=== PATIENT | male | born 1970 | race Caucasian/White ===

== ENCOUNTER 2018-09-19 16:18 | Emergency (ER) | payer SELFPAY ==
[2018-09-19 16:39] VITALS: BP 170/84; PULSE 90; RESP 18; TEMP 97.9; O2SAT 99
--- NOTE | 2018-09-19 17:30 | C.PDOC ---
History Of Present Illness 48 y/o male presents to the ED complaining of right upper arm and shoulder pain s/p trauma yesterday. Patient states a large metal plate hit him at the right upper arm/shoulder while at work yesterday. He works in an industrial kitchen. Denies any extremity weakness, numbness, head injury, LOC, chest pain, or SOB. Patient reports taking Tylenol at home with minimal relief. Time Seen by Provider: 09/19/18 16:43 Chief Complaint (Nursing): Upper Extremity Problem/Injury History Per: Patient History/Exam Limitations: no limitations Onset/Duration Of Symptoms: Days (x 2) Current Symptoms Are (Timing): Still Present Past Medical History Reviewed: Historical Data, Nursing Documentation, Vital Signs Vital Signs: Last Vital Signs Temp 97.9 F 09/19/18 16:37 Pulse 90 09/19/18 16:37 Resp 18 09/19/18 16:37 BP 170/84 H 09/19/18 16:37 Pulse Ox 99 09/19/18 16:37 - Medical History PMH: HTN, Hypercholesterolemia Surgical History: Appendectomy Family History: States: Unknown Family Hx - Social History Hx Tobacco Use: Yes Hx Alcohol Use: Yes Hx Substance Use: No - Immunization History Hx Tetanus Toxoid Vaccination: Yes Hx Influenza Vaccination: No Hx Pneumococcal Vaccination: No Review Of Systems Constitutional: Negative for: Other (Head injury) Eyes: Negative for: Vision Change Cardiovascular: Negative for: Chest Pain Respiratory: Negative for: Shortness of Breath Musculoskeletal: Positive for: Shoulder Pain (right), Arm Pain (Right upper). Negative for: Neck Pain Neurological: Negative for: Weakness, Numbness, Incoordination, Headache Physical Exam - Physical Exam Appears: Non-toxic, In Acute Distress (appears to be in mild pain) Skin: Warm, Dry Head: Atraumatic, Normacephalic Eye(s): bilateral: Normal Inspection Neck: Normal ROM Chest: Symmetrical, No Deformity, No Tenderness Cardiovascular: Rhythm Regular, No Murmur Respiratory: Normal Breath Sounds, No Accessory Muscle Use Extremity: Normal ROM (with FROM of the right wrist, elbow, and shoulder), Tenderness (to the right distal arm at lateral aspect, with mild TTP of the right lateral shoulder; No elbow tenderness), Capillary Refill (< 2 sec), No Deformity, Other (ecchymosis, approximately 5x5 cm, to the right upper arm) Pulses: Left Radial: Normal, Right Radial: Normal Neurological/Psych: Oriented x3, Normal Speech ED Course And Treatment O2 Sat by Pulse Oximetry: 99 (RA) Pulse Ox Interpretation: Normal - Other Rad XR R shoulder X-Ray: Interpreted by Me, Viewed By Me Interpretation: No acute fracture or dislocation XR R elbow X-Ray: Interpreted by Me, Viewed By Me Interpretation: No acute fracture or dislocation Progress Note: Patient given 50 mg tramadol PO for pain control. X-rays taken of the right shoulder and elbow, and are negative. Patient counseled regarding results and likely diagnosis. Advised to follow up with orthopedist for further evaluation. Reevaluation Time: 17:33 Reassessment Condition: Improved Disposition Counseled Patient/Family Regarding: Studies Performed, Diagnosis, Need For Followup, Rx Given - Disposition Referrals: Wallace Coates [Staff Provider] - Rip Yi III, MD [Staff Provider] - Disposition: HOME/ ROUTINE Disposition Time: 17:35 Condition: STABLE Additional Instructions: FOLLOW UP WITH YOUR DOCTOR IN 1-2 DAYS, AND WITH ORTHOPEDICS WITHIN 1 WEEK USE PAIN MEDICATION NEEDED RETURN TO EMERGENCY ROOM IF YOUR SYMPTOMS BECOME WORSE HEATHER SEGUIMIENTO CON LEOS MDICO EN 1-2 NIELSEN Y CON ORTOPDICOS EN CLAUDINE SEMANA UTILICE MEDICAMENTOS PARA EL DOLOR PRIYANK SE NECESITE VUELVA A LA AMI DE EMERGENCIA SI MOISES SNTOMAS SE HACEN PEOR Prescriptions: Ibuprofen [Motrin Tab] 600 mg PO Q6 PRN #30 tab PRN Reason: fever/pain traMADol [Ultram] 50 mg PO BID PRN #10 tab PRN Reason: pain Instructions: Taking Care of Bruises, Contusion (DC) Forms: [employer] (Angolan), Work Excuse Print Language: ICELANDIC - POA Present On Arrival: Falls Or Trauma - Clinical Impression Clinical Impression: Contusion of right upper arm - Scribe Statement The provider has reviewed the documentation as recorded by the Courtney Zuniga Provider Attestation: All medical record entries made by the Christianoibe were at my direction and personally dictated by me. I have reviewed the chart and agree that the record accurately reflects my personal performance of the history, physical exam, medical decision making, and the department course for this patient. I have also personally directed, reviewed, and agree with the discharge instructions and disposition.
--- NOTE | 2018-09-19 18:19 | RAD ---
Date of service: 09/19/2018 PROCEDURE: Radiographs of the Right Shoulder HISTORY: RIGHT SHOULDER PAIN, R/O FX COMPARISON: No prior. FINDINGS: BONES: No evidence of acute fracture or dislocation. JOINTS: Degenerative osteoarthritic changes at the AC joint are again noted. SOFT TISSUES: Interval appearance of soft tissue calcification adjacent to the humeral head suggestive of calcified tendinitis. OTHER FINDINGS: None. IMPRESSION: No evidence of acute fracture or dislocation. Findings suggestive of calcified tendinitis. Moderate AC joint osteoarthritis.
--- NOTE | 2018-09-19 18:20 | RAD ---
Date of service: 09/19/2018 PROCEDURE: Radiographs of the right elbow. HISTORY: RIGHT ELBOW/UPPER ARM PAIN AFTER INJURY COMPARISON: No prior. FINDINGS: BONES: Normal. No fracture. JOINTS: Normal. No osteoarthritis. SOFT TISSUES: Normal. JOINT EFFUSION: None. OTHER FINDINGS: None. IMPRESSION: No evidence of acute fracture or right elbow joint effusion.
== END 2018-09-19 17:42 | disposition home or self-care (01) ==
LOC: C.ER 16:18
DX: S40.021A Contusion of right upper arm, initial encounter (principal); W22.8XXA Striking against or struck by other objects, initial encounter; Y92.89 Other specified places as the place of occurrence of the external cause; Y99.0 Civilian activity done for income or pay